=== PATIENT | female | born 1985 | race Caucasian/White ===

== ENCOUNTER 2019-12-26 17:44 | Inpatient (IN) | payer BC ==
[~2019-12-26] VITALS: Ht 157.5 cm; Wt 94.8 kg
--- NOTE | ~2019-12-26 | CON ---
[address] [address] CONSULTATION Name: PHYLLIS WEEMS Room: [address] IN [facility].#: [id number] Admission: 12/26/19 Attend Phys: Bindu Faye Discharge: Date of : 81 Report #: [id number] THIS REPORT FOR: //name// cc: [employer] [facility] No family physician/PCP [facility] - No family physician/PCP ~ THIS REPORT FOR: //name// CC: [facility] physician/PCP Jus Easton DICTATED BY: Yvonne VILLEGASP DATE OF SERVICE: 12/27/2019 The patient does not have a primary care physician at this time. Please note at the time of this dictation, the patient was seen and physically examined by myself. REASON FOR CONSULTATION: Abnormal CT, nausea, vomiting and abdominal pain. HISTORY OF PRESENT ILLNESS: This is a 34-year-old female who presented to the Emergency Room that on Wednesday, she started having significant left flank and feeling very nauseous. She had been diagnosed with a UTI the week before and had just finished up antibiotics prior to coming in. She states that she started having significant abdominal discomfort. She started getting very hot and cold chills. She was running a fever and having left-sided abdominal discomfort and also generalized. The patient states she had issues with going to the bathroom. She has chronic constipation. She normally takes MiraLax and Colace on a regular basis, if she does not take that she will not go. The patient states she has had issues with constipation her entire life. However, recently it has gotten significantly worse. The patient states back in 2010, she was told that she had colitis, but never had a colonoscopy in [place], [place], which is now [facility] in which she was diagnosed with "colitis" at that time, but never given any medicines for that. She states when she was in [employer] in 2007 in [place], she was having some abdominal pain, but she had been taking a lot of ibuprofen at that time and she was noted to have a peptic ulcer disease when she underwent an EGD, but was intolerable to the prep and had multiple bouts of vomiting, but never had a colonoscopy done at that time. Again, the patient states she has had chronic issues with constipation that has been lifelong but has gotten significantly worse for her over the last year, if not longer. She does have intermittent abdominal pain from time to time as well as some nausea. ALLERGIES: IBUPROFEN, ERYTHROMYCIN, CIPROFLOXACIN, [place] [address] CONSULTATION Name: PHYLLIS WEEMS Room: [address]#: [id number] Admission: 12/26/19 Attend Phys: Bindu Faye Discharge: Date of : 81 Report #: [id number] MEDICATIONS FROM HOME: None. PAST MEDICAL HISTORY: History of peptic ulcer disease, history of bipolar and diagnosed with questionable colitis in the past. PAST SURGICAL HISTORY: Cholecystectomy, appendectomy, two C-sections, tubal ligation, and right inguinal hernia repair. FAMILY HISTORY: Significant for uterine and stomach cancer and colon cancer on the maternal side of the family and maternal side of the family history of autoimmune disease, lupus and celiac disease. SOCIAL HISTORY: The patient has children. She does smoke. Denies any alcohol or illegal drug use. REVIEW OF SYSTEMS: Twelve-point review of systems is essentially negative except what is mentioned in the HPI. PHYSICAL EXAMINATION: VITAL SIGNS: Temperature 37.2, pulse 89, respirations 14, blood pressure 113/78. HEART: Regular rate and rhythm. LUNGS: Clear. ABDOMEN: Soft, positive bowel sounds in all 4 quadrants with tenderness noted more in the right lower but also on the left side of the colon. LABORATORY DATA: Hemoglobin 15.6, white count is 10.8, platelets 258, GFR is 81. CT of the abdomen and pelvis shows small hiatal hernia, submucosal fatty infiltration and wall thickening at the TI and descending colon. Also, noting a fatty liver. IMPRESSION: 1. Abdominal pain. 2. Nausea and vomiting. 3. Diarrhea. 4. Abnormal CT. 5. History of chronic constipation with worsening. 6. Urinary tract infection. 7. Family history of uterine, stomach and colon cancer on maternal side. 8. Family history of autoimmune disease on maternal side, lupus and celiac. PLAN: 1. EGD today. 2. We will attempt to obtain records from [place], [place] at [facility] when she was hospitalized there in 2010. 3. Labs, ESR [place] [address] CONSULTATION Name: PHYLLIS WEEMS Room: [address] IN [facility]#: [id number] Admission: 12/26/19 Attend Phys: Bindu Faye Discharge: Date of : 81 Report #: [id number] 4. Further recommendations will be made after the EGD and timing of her colonoscopy will be determined. Thank you for allowing us to participate in this patient's care. Please do not hesitate to call with any questions in regard to this consult. By: [id number] Camacho MD /nt
[~2019-12-26 17:44] MED LIST: ABILIFY 5 MG TAB5 MG PO; AMBIEN 5 MG TABL5 M1 PO; CARAFATE 1 GM TA1 G1 PO; CLONAZEPAM 0.50.5 M1 PO; LAMICTAL100 MG PO; LEVSIN0.125 MG PO; MACROBID 100 M100 M1 PO; MINIPRESS1 MG PO; NORCO 5-325 TA1 EACH PO; PROTONIX40 M2 PO; PROZAC20 MG PO; ZOFRAN ODT8 MG PO
[2019-12-26 18:21] VITALS: BP 126/90
[2019-12-26 18:35] LABS: URINE BILIRUBIN NEGATIVE (Negative); URINE BLOOD NEGATIVE (Negative); URINE CLARITY CLEAR; URINE COLOR YELLOW; URINE GLUCOSE-RANDOM NEGATIVE (Negative); URINE KETONES 1+ (Negative); URINE LEUKOCYTES-REFLEX TRACE (Negative); URINE NITRITE-REFLEX NEGATIVE (Negative); URINE PROTEIN NEGATIVE (Negative); URINE UROBILINOGEN 0.2 E.U./dl (0.2-1.0)
[2019-12-26 18:40] LABS: MUCUS >6 Heavy strn/LPF (None Seen); SQUAMOUS >10 Many /LPF (0-3)
[2019-12-26 18:41] LABS: URINE WBC-REFLEX 6-15 Few /HPF (0-5)
[2019-12-26 18:42] LABS: CASTS None Seen /LPF (None Seen); CRYSTALS None Seen /LPF (None Seen); URINE RBC None Seen /HPF (0-2)
[2019-12-26 18:43] LABS: ABSOLUTE BASOPHILS 0.1 thou/uL (0.0-0.2); ABSOLUTE EOSINOPHILS 0.1 thou/uL (0.0-0.7); ABSOLUTE LYMPHOCYTES 1.9 thou/uL (0.8-5.3); ABSOLUTE MONOCYTES 0.5 thou/uL (0.0-1.2); ABSOLUTE NEUTROPHILS 8.3 thou/uL (1.6-8.1); BASOPHILS 0.6 %; EOSINOPHILS 0.8 %; HEMATOCRIT 45.9 % (37.0-47.0); HEMOGLOBIN 15.6 gm/dL (12.0-15.0); LYMPHOCYTES 17.2 %; MCHC 33.9 g/dL (28.0-37.0); MCV 88.6 fL (80.0-100.0); MPV 10.3 fl. (7.2-11.1); NUCLEATED RBCS 0 /100WBC; PLATELET COUNT* 258 thou/uL (150-400); POLYS 76.4 %; RBC 5.18 mil/uL (4.20-5.00); RDW-CV 14.5 % (10.5-14.5); WBC 10.8 thou/uL (4.0-11.0)
[2019-12-26 18:51] LABS: CALCIUM 9.2 mg/dL (8.5-10.1); CREATININE 0.8 mg/dL (0.6-1.3); POTASSIUM 3.7 mmol/L (3.5-5.1)
[2019-12-26 18:55] LABS: TOTAL BILIRUBIN 0.4 mg/dL (<0.1-1.0); TOTAL PROTEIN 8.7 g/dL (6.4-8.2)
[2019-12-26 23:01] VITALS: BP 102/78
[2019-12-26 23:30] VITALS: BP 113/78
[2019-12-27 08:00] VITALS: BP 118/70
[2019-12-27 16:00] VITALS: BP 112/67
[2019-12-27 19:42] VITALS: BP 115/76
[2019-12-28 00:30] VITALS: BP 112/65
[2019-12-28 04:00] VITALS: BP 109/63
[2019-12-28 05:29] LABS: CREATININE 0.7 mg/dL (0.6-1.3); MAGNESIUM 1.8 mg/dL (1.8-2.4); POTASSIUM 3.1 mmol/L (3.5-5.1)
[2019-12-28 08:00] VITALS: BP 132/85
[2019-12-28 20:30] VITALS: BP 116/75; BP 117/75
[2019-12-29 08:15] VITALS: BP 124/88
--- NOTE | 2019-12-29 12:07 | PATH ---
[facility] [address] [place] [address] PATHOLOGY RPT PROCEDURE Name: ANGELA WETZEL Room: [address] IN M.R.#: [id number] Admission: 12/26/19 Date of : 81 Discharge: Report #: [id number] Path Case #: [id number] Accession Number: [id number] . 01 Material submitted: . stomach - GASTRIC BIOPSIES TO R/O H. PYLORI . 01 Clinical history: . R/O H. pylori . 02 Diagnosis: Gastric biopsies: - Mild chronic gastritis, typical of reactive gastropathy (chemical gastritis), negative for Helicobacter pylori organisms and dysplasia. . (ASHA:dilcia; 12/29/2019) REPLACED BY [facility] 12/29/2019 1023 Local . 02 Comment: Special stain: H. pylori immuno. . (ASHA:dilcia; 12/29/2019) . 02 Electronically signed: . José Miguel Hollis MD, Pathologist NPI- [id number] . 01 Gross description: . The specimen is received in formalin, labeled "Angela Wetzel, gastric biopsies to R/O H. pylori". Received are two segments of pale mayers soft tissue ranging in size from 0.6 to 0.7 cm in maximum dimensions. The specimen is submitted entirely in cassette A1. (CAA; 12/28/2019) QAC/QAC 12/28/2019 1153 Local . 02 Pathologist provided ICD-10: K29.50 . 02 CPT . 904512, R67721 Specimen Comment: A courtesy copy of this report has been sent to [phone] Specimen Comment: [phone] Specimen Comment: Report sent to / DR CARRINGTON Performed at: [address] [id number] MD Yuniel John MD Phone: [phone] [place] [address] PATHOLOGY RPT PROCEDURE Name: ANGELA EWTZEL Room: [address] IN ..#: [id number] Admission: 12/26/19 Date of : 81 Discharge: Report #: [id number] Path Case #: [id number] Performed at: [address] [place] [id number] MD José Miguel Hollis MD Phone: [phone]
[2019-12-29] MEDS ORDERED: PANTOPRAZOLE SO40 M1 PO (12:30)
[2019-12-29] MEDS ORDERED: AUGMENTIN 875-1 EACH PO (12:30)
[2019-12-29] MEDS ORDERED: NORCO 5-325 TA1 EAC1 PO (12:31)
[2019-12-29 15:10] VITALS: BP 116/75
[2019-12-29 15:14] VITALS: BP 116/75
[2019-12-29 16:50] LABS: CALCIUM 9.4 mg/dL (8.5-10.1); CREATININE 0.7 mg/dL (0.6-1.3); MAGNESIUM 1.8 mg/dL (1.8-2.4); POTASSIUM 3.3 mmol/L (3.5-5.1)
[2019-12-29 17:40] VITALS: BP 116/75
== END 2019-12-29 17:40 | disposition home or self-care (01) | DRG 690 ==
LOC: M.ERS 17:44 → M.ORTHSURG 20:49 → M.TBA-ER 20:49 → M.ORTHSURG 22:36
PROVIDERS: Family Medicine; Internal Medicine; ADMIT Internal Medicine
PROC: 0DB68ZX Excision of Stomach, Via Natural or Artificial Opening Endoscopic, Diagnostic (ICD-10-PCS; principal; 2019-12-27)
PROC: 0DJD8ZZ Inspection of Lower Intestinal Tract, Via Natural or Artificial Opening Endoscopic (ICD-10-PCS; 2019-12-29)
DX: N30.01 Acute cystitis with hematuria (principal); R65.10 Systemic inflammatory response syndrome (SIRS) of non-infectious origin without acute organ dysfunction; K52.9 Noninfective gastroenteritis and colitis, unspecified; K29.70 Gastritis, unspecified, without bleeding; F31.9 Bipolar disorder, unspecified; K59.09 Other constipation; K27.9 Peptic ulcer, site unspecified, unspecified as acute or chronic, without hemorrhage or perforation; E66.9 Obesity, unspecified; K20.9 Esophagitis, unspecified; K64.8 Other hemorrhoids; Z90.49 Acquired absence of other specified parts of digestive tract; Z88.6 Allergy status to analgesic agent; Z88.1 Allergy status to other antibiotic agents; Z68.38 Body mass index [BMI] 38.0-38.9, adult; Z88.8 Allergy status to other drugs, medicaments and biological substances; Z87.11 Personal history of peptic ulcer disease; Z80.0 Family history of malignant neoplasm of digestive organs; Z80.59 Family history of malignant neoplasm of other urinary tract organ

== ENCOUNTER 2020-01-03 02:18 | Emergency (ER) | payer BC ==
[~2020-01-03] VITALS: Ht 157.5 cm; Wt 90.7 kg
[~2020-01-03 02:18] MED LIST changes: +AUGMENTIN 875-1 EACH PO; +NORCO 5-325 TA1 EAC1 PO; +PANTOPRAZOLE SO40 M1 PO
[2020-01-03 03:21] LABS: ABSOLUTE BASOPHILS 0.1 thou/uL (0.0-0.2); ABSOLUTE EOSINOPHILS 0.1 thou/uL (0.0-0.7); ABSOLUTE LYMPHOCYTES 2.3 thou/uL (0.8-5.3); ABSOLUTE MONOCYTES 0.4 thou/uL (0.0-1.2); ABSOLUTE NEUTROPHILS 5.5 thou/uL (1.6-8.1); BASOPHILS 0.6 %; EOSINOPHILS 0.8 %; HEMATOCRIT 37.1 % (37.0-47.0); HEMOGLOBIN 12.7 gm/dL (12.0-15.0); LYMPHOCYTES 27.3 %; MCH 30.5 pg (26.0-34.0); MCHC 34.3 g/dL (28.0-37.0); MCV 88.8 fL (80.0-100.0); MONOCYTES 4.9 %; MPV 9.3 fl. (7.2-11.1); NUCLEATED RBCS 0 /100WBC; PLATELET COUNT* 256 thou/uL (150-400); POLYS 66.4 %; RBC 4.17 mil/uL (4.20-5.00); RDW-CV 14.2 % (10.5-14.5); WBC 8.3 thou/uL (4.0-11.0)
[2020-01-03 03:30] LABS: URINE BILIRUBIN NEGATIVE (Negative); URINE BLOOD NEGATIVE (Negative); URINE CLARITY CLEAR; URINE COLOR YELLOW; URINE GLUCOSE-RANDOM NEGATIVE (Negative); URINE KETONES TRACE (Negative); URINE LEUKOCYTES-REFLEX NEGATIVE (Negative); URINE NITRITE-REFLEX NEGATIVE (Negative); URINE PROTEIN TRACE (Negative); URINE UROBILINOGEN 0.2 E.U./dl (0.2-1.0)
[2020-01-03 03:37] LABS: CALCIUM 8.1 mg/dL (8.5-10.1); CREATININE 0.7 mg/dL (0.6-1.3); POTASSIUM 3.4 mmol/L (3.5-5.1)
[2020-01-03 03:51] LABS: ALBUMIN 3.1 g/dL (3.4-5.0); MAGNESIUM 1.8 mg/dL (1.8-2.4); TOTAL BILIRUBIN 0.2 mg/dL (<0.1-1.0); TOTAL PROTEIN 6.9 g/dL (6.4-8.2)
[2020-01-03] MEDS ORDERED: ULTRAM 50MG TAB50 MG PO (05:30)
[2020-01-03] MEDS ORDERED: BENTYL 20 MG TA20 M1 PO (05:30)
[2020-01-03 05:37] VITALS: BP 111/74
== END 2020-01-03 05:37 | disposition home or self-care (01) ==
LOC: M.ERS 02:18
PROVIDERS: Personal Emergency Response Attendant
DX: R10.11 Right upper quadrant pain (principal); R10.84 Generalized abdominal pain; R10.31 Right lower quadrant pain; R19.7 Diarrhea, unspecified; Z90.49 Acquired absence of other specified parts of digestive tract; Z98.51 Tubal ligation status; Z88.1 Allergy status to other antibiotic agents; Z88.6 Allergy status to analgesic agent; Z88.8 Allergy status to other drugs, medicaments and biological substances